=== PATIENT | male | born 1985 | race African-American/Black ===

== ENCOUNTER 2017-02-08 13:58 | Emergency (ER) | payer BC ==
[~2017-02-08] VITALS: Ht 177.8 cm; Wt 83.9 kg
[~2017-02-08 13:58] MED LIST: ACETAMINOPHEN-1 EAC1 PO; AFRIN15 ML NS; AMOXICILLIN 50500 M1 PO; AMOXICILLIN 50500 MG; APAP/CODEINE ELI5 M1 OR; BENADRYL25 MG PO; CHANTIX0.5 MG PO; FLONASE 0.05%50 MCG NASAL; IBUPROFEN 600600 M1 PO; MEDROLDOSEPACK PO; MULTIVITAMINS1 EAC7; NORCO 5-325 TA1 EACH PO; PREDNISONE 20 M20 M1 PO; PREDNISONE 20 M20 MG PO; PREDNISONE50 MG PO; TOBRAMYCIN SULFA5 ML OP; VENTOLIN HFA 1818 GM INH; ZANTAC 150MG T150 MG PO; ZOFRAN 4 MG ORAL4 MG PO; ZYRTEC10 M5 PO
[2017-02-08 13:59] VITALS: BP 135/86
[2017-02-08] MEDS ORDERED: BUTALB-APAP-CA1 EACH PO (14:13)
[2017-02-08] MEDS ORDERED: AMOXICILLIN 50500 MG PO (15:07)
== END 2017-02-08 15:11 | disposition home or self-care (01) ==
LOC: ER 13:58
DX: J32.9 Chronic sinusitis, unspecified (principal); F17.210 Nicotine dependence, cigarettes, uncomplicated

== ENCOUNTER 2017-03-08 12:50 | Emergency (ER) | payer BC ==
[~2017-03-08] VITALS: Ht 180.3 cm; Wt 86.2 kg
[~2017-03-08 12:50] MED LIST changes: +AMOXICILLIN 50500 MG PO; +BUTALB-APAP-CA1 EACH PO
[2017-03-08] MEDS ORDERED: AMOXICILLIN 50500 MG PO (12:53)
[2017-03-08] MEDS ORDERED: ACCUNEB SO1.25 MG/1 INH (12:53)
[2017-03-08] MEDS ORDERED: IBUPROFEN 600600 M1 PO (13:58)
[2017-03-08] MEDS ORDERED: TIZANIDINE HCL4 MG PO (13:58)
[2017-03-08 14:59] VITALS: BP 119/73
== END 2017-03-08 15:20 | disposition home or self-care (01) ==
LOC: ER 12:50
DX: S39.012A Strain of muscle, fascia and tendon of lower back, initial encounter (principal); F17.210 Nicotine dependence, cigarettes, uncomplicated; F10.99 Alcohol use, unspecified with unspecified alcohol-induced disorder; X58.XXXA Exposure to other specified factors, initial encounter; Y93.89 Activity, other specified; Y92.89 Other specified places as the place of occurrence of the external cause; Y99.8 Other external cause status

== ENCOUNTER 2017-06-13 16:01 | Emergency (ER) | payer BC ==
[~2017-06-13] VITALS: Ht 177.8 cm; Wt 88.5 kg
[~2017-06-13 16:01] MED LIST changes: +ACCUNEB SO1.25 MG/1 INH; +TIZANIDINE HCL4 MG PO
[2017-06-13] MEDS ORDERED: COMPAZINE5 M1 PO (18:00)
[2017-06-13 18:19] VITALS: BP 119/86
== END 2017-06-13 18:02 | disposition home or self-care (01) ==
LOC: ER 16:01
DX: R51 Headache (principal); F17.210 Nicotine dependence, cigarettes, uncomplicated; F10.99 Alcohol use, unspecified with unspecified alcohol-induced disorder

== ENCOUNTER 2018-03-20 03:47 | Emergency (ER) | payer BC ==
[~2018-03-20] VITALS: Ht 180.3 cm; Wt 86.2 kg
[~2018-03-20 03:47] MED LIST changes: +COMPAZINE5 M1 PO
[2018-03-20] MEDS ORDERED: IBUPROFEN 600600 M1 PO (04:54)
[2018-03-20] MEDS ORDERED: AMOXICILLIN875 MG PO (05:00)
[2018-03-20] MEDS ORDERED: NORCO 5-325 TA1 EACH PO (05:00)
[2018-03-20 05:13] VITALS: BP 141/98
== END 2018-03-20 05:14 | disposition home or self-care (01) ==
LOC: ER 03:47
DX: J36 Peritonsillar abscess (principal); F17.210 Nicotine dependence, cigarettes, uncomplicated

== ENCOUNTER 2018-04-15 13:29 | Emergency (ER) | payer BC ==
[~2018-04-15] VITALS: Ht 180.3 cm; Wt 81.7 kg
[~2018-04-15 13:29] MED LIST changes: +AMOXICILLIN875 MG PO
[2018-04-15] MEDS ORDERED: PREDNISONE 20 M20 MG PO (14:35)
[2018-04-15] MEDS ORDERED: AFRIN30 ML NASAL (14:35)
[2018-04-15] MEDS ORDERED: FLONASE 0.05%50 MCG NASAL (14:35)
[2018-04-15 15:28] VITALS: BP 129/75
== END 2018-04-15 15:32 | disposition home or self-care (01) ==
LOC: ER 13:29
DX: J30.9 Allergic rhinitis, unspecified (principal); J32.9 Chronic sinusitis, unspecified; F17.210 Nicotine dependence, cigarettes, uncomplicated

== ENCOUNTER 2018-04-26 07:02 | Emergency (ER) | payer BC ==
[~2018-04-26] VITALS: Ht 180.3 cm; Wt 83.9 kg
[~2018-04-26 07:02] MED LIST changes: +AFRIN30 ML NASAL
[2018-04-26 07:58] VITALS: BP 138/91
== END 2018-04-26 08:12 | disposition home or self-care (01) ==
LOC: ER 07:02
DX: S91.301D Unspecified open wound, right foot, subsequent encounter (principal); F17.210 Nicotine dependence, cigarettes, uncomplicated; Z48.01 Encounter for change or removal of surgical wound dressing; X58.XXXD Exposure to other specified factors, subsequent encounter

== ENCOUNTER 2018-06-19 07:44 | Emergency (ER) | payer BC ==
[~2018-06-19] VITALS: Ht 154.9 cm; Wt 81.7 kg
[2018-06-19] MEDS ORDERED: CHANTIX1 EACH PO (07:51)
[2018-06-19] MEDS ORDERED: KETOCONAZOLE15 GM TOP (07:52)
[2018-06-19 08:30] LABS: HEMOGLOBIN 14.9 gm/dL (14.0-18.0); MCH 32.3 pg (26.0-34.0); MCHC 34.7 g/dL (28.0-37.0); MCV 93.1 fL (80.0-100.0); RBC 4.62 mil/uL (4.50-6.00); RDW 12.8 % (10.5-14.5); WBC 4.9 thou/uL (4.0-11.0)
[2018-06-19 08:35] LABS: CALCIUM 8.9 mg/dL (8.5-10.1); CREATININE 1.3 mg/dL (0.7-1.3); POTASSIUM 3.8 mmol/L (3.5-5.1)
[2018-06-19 08:41] LABS: ALBUMIN 3.8 g/dL (3.4-5.0); TOTAL BILIRUBIN 0.6 mg/dL (<0.1-1.0); TOTAL PROTEIN 7.7 g/dL (6.4-8.2)
[2018-06-19 09:37] LABS: URINE BILIRUBIN NEGATIVE (Negative); URINE BLOOD NEGATIVE (Negative); URINE CLARITY CLEAR; URINE COLOR YELLOW; URINE GLUCOSE-RANDOM* NEGATIVE (Negative); URINE KETONES NEGATIVE (Negative); URINE LEUKOCYTES-REFLEX NEGATIVE (Negative); URINE NITRITE-REFLEX NEGATIVE (Negative); URINE PROTEIN (DIPSTICK) NEGATIVE (Negative); URINE SPECIFIC GRAVITY 1.015 (1.005-1.035); URINE UROBILINOGEN 0.2 E.U./dl (0.2-1.0)
[2018-06-19] MEDS ORDERED: MIRALAX17 GM PO (10:06)
[2018-06-19 10:20] VITALS: BP 116/78
== END 2018-06-19 10:21 | disposition home or self-care (01) ==
LOC: ER 07:44
PROVIDERS: Student in an Organized Health Care Education/Training Program
DX: K59.00 Constipation, unspecified (principal); F17.210 Nicotine dependence, cigarettes, uncomplicated

== ENCOUNTER 2021-10-22 11:33 | Emergency (ER) | payer OTHER ==
[~2021-10-22] VITALS: Ht 180.3 cm; Wt 88.5 kg
[~2021-10-22 11:33] MED LIST changes: +CHANTIX1 EACH PO; +KETOCONAZOLE15 GM TOP; +MIRALAX17 GM PO
[2021-10-22 12:34] LABS: ABSOLUTE NEUTROPHILS 2.8 thou/uL (1.4-8.2); BASOPHILS 1.1 % (0.0-2.0); EOSINOPHILS 5.6 % (0.0-3.0); HEMATOCRIT 41.1 % (42.0-52.0); HEMOGLOBIN 14.2 gm/dL (14.0-18.0); LYMPHOCYTES 27.9 % (24.0-44.0); MCH 31.8 pg (26.0-34.0); MCHC 34.6 g/dL (28.0-37.0); PLATELET COUNT 117 thou/uL (150-400); POLYS 59.4 % (36.0-66.0); RBC 4.47 mil/uL (4.50-6.00); RDW 13.2 % (10.5-14.5); WBC 4.7 thou/uL (4.0-11.0)
[2021-10-22 12:55] LABS: CALCIUM 8.8 mg/dL (8.5-10.1); POTASSIUM 3.7 mmol/L (3.5-5.1)
[2021-10-22 13:02] LABS: ALBUMIN 3.7 g/dL (3.4-5.0); DIRECT BILIRUBIN 0.1 mg/dL (<0.1-0.2); TOTAL BILIRUBIN 0.6 mg/dL (0.2-1.0); TOTAL PROTEIN 7.5 g/dL (6.4-8.2)
[2021-10-22 17:39] VITALS: BP 127/72
== END 2021-10-22 17:12 | disposition home or self-care (01) ==
LOC: ER 11:33
PROVIDERS: Student in an Organized Health Care Education/Training Program
DX: K42.9 Umbilical hernia without obstruction or gangrene (principal); Z20.822 Contact with and (suspected) exposure to COVID-19; K40.90 Unilateral inguinal hernia, without obstruction or gangrene, not specified as recurrent; F17.210 Nicotine dependence, cigarettes, uncomplicated